=== PATIENT | female | born 1980 | race Two or more races ===

== ENCOUNTER 2022-04-08 20:35 | Emergency (ER) | payer SELFPAY ==
[~2022-04-08] VITALS: Ht 165.1 cm; Wt 90.7 kg
--- NOTE | 2022-04-08 20:35 | NUR ---
RECEIVED THIS 41YO FEMALE PATIENT IN THE HOSPITAL PARKING LOT STANDING BESIDE THE BARBER INSTRUCTOR SIDE DOOR. PATIENT IS SHOUTING AND CRYING THAT SHE IS GONNA DELIVER A BABY. ASSESSMENT DONE, PATIENT IS STANDING IN A POOL OF WATER RUNNING FROM HER LEGS. SAW A FETUS STILL INSIDE A SAC IN THE BARBER INSTRUCTOR SEAT. PATIENT SAID SOMETHING CAME OUT AND SHE IS 17 WEEKS . TRANSPORTED PATIENT INSIDE THE ER AT BED 17. ATTACHED TO MONITOR. VITALS CHECKED.
--- NOTE | 2022-04-08 20:51 | NUR ---
GUSHING OF AMNIOTIC FLUIDS ACCOMPANIED WITH CONTRACTIONS.
--- NOTE | 2022-04-08 20:53 | NUR ---
PATIENT REFUSED FOR IV LINE REFUSED TO HAVE BLOOD DRAWN
--- NOTE | 2022-04-08 21:11 | NUR ---
2ND FETUS DELIVERED WITH UMBILICAL CORD ATTACHED TO PLACENTA INSIDE MOTHER'S WOMB.
--- NOTE | 2022-04-08 21:15 | NUR ---
AWAITING ACCEPTANCE INFO FROM [facility] REGARDING PT TRANSFER. CALLED [facility] SPOKE WITH DISPATCHER LEEANNE. ALS TRANSPORT WILLCALL SET UP FOR MIDNIGHT.
--- NOTE | 2022-04-08 21:28 | NUR ---
[facility] GAVE ACCEPTANCE UNDER DR HERRERA. ER TO ER ALS TRANSFER SCHEDULED FOR MIDNIGHT [facility]IA [facility]. Addendum: 04/08/22 at 2340 by ROMOLT MEENA GAVE ACCEPTANCE UNDER DR HERRERA. ER TO OB TRIAGE ALS TRANSFER SCHEDULED FOR MIDNIGHT [facility]IA [facility].
[2022-04-08] MEDS ORDERED: OXYTOCIN 20 UNIT in IV NS 0.9% 1,000 ML IV ONE (21:30)
--- NOTE | 2022-04-08 21:30 | NUR ---
[facility] TO L&D NURSE SANDS WITH DR HERRERA AT THE BACKGROUND. RECEIVED INSTRUCTIONS TO PUT THE FETUSES IN A CONTAINER WITH SOLUTION PREPARED BY LAB. AND SEND THE FETUSES TO THE LAB AND NOT TO SENT IT WITH THE PATIENT TO [facility]. GIVEN INSTRUCTIONS BY NURSE SANDS TO CUT THE UMBILICAL CORD AND MAINTAIN THE CLAMP IN THE UMBILICAL CORD ATTACHED TO AVOID RETRACTION OF PLACENTA INSIDE THE MOTHER.
--- NOTE | 2022-04-08 21:30 | NUR ---
DR GARCIA MADE AWARE ABOUT THE PLAN OF L&D NURSE AND DR. HERRERA AND HE AGREED.
--- NOTE | 2022-04-08 21:45 | NUR ---
PLACENTA OUT, PRESSLEY PRESENTATION. MD MADE AWARE. MD CAME AND INSPECT THE PLACENTA.
[2022-04-08] MEDS ORDERED: VASOPRESSIN INJ 20 UNIT/ML VIAL ONE (22:00)
[2022-04-08 22:49] LABS: BASOPHILS % (AUTO) 0.1 % (0.0-2.0); EOSINOPHILS % (AUTO) 0.1 % (0.0-6.0); HEMATOCRIT 33 % (33-45); HEMOGLOBIN 11.1 g/dL (11.5-14.8); LYMPHOCYTES # (AUTO) 0.5 K/uL (0.8-4.8); LYMPHOCYTES % (AUTO) 5.5 % (20.0-44.0); MEAN CORPUSCULAR HGB CONC 34 g/dl (31.0-36.0); MEAN CORPUSCULAR VOLUME 87 fL (82-100); MONOCYTES # (AUTO) 0.1 K/uL (0.1-1.30); MONOCYTES % (AUTO) 1.4 % (2.0-12.0); NEUTROPHILS # (AUTO) 8.3 K/uL (1.8-8.9); NEUTROPHILS % (AUTO) 92.9 % (43.0-81.0); PLATELET COUNT (AUTO) 148 K/uL (150-450); RED BLOOD CELL COUNT(AUTO) 3.77 MIL/uL (4.0-5.2)
[2022-04-08] MEDS ORDERED: TDAP [DIPH/PERTUSSIS/TET] 0.5 ML VIAL IM ONE (23:04)
[2022-04-08 23:08] LABS: ALBUMIN 2.8 g/dL (3.4-5.0); BILIRUBIN,DIRECT 0.1 mg/dL (0.0-0.2); BILIRUBIN,TOTAL 0.4 mg/dL (0.2-1.0); TOTAL PROTEIN, SERUM 6.8 g/dL (6.4-8.2)
--- NOTE | 2022-04-08 23:17 | NUR ---
COVID SWAB DONE AND SENT TO LAB
--- NOTE | 2022-04-08 23:47 | NUR ---
[facility] CALLED TO INFORM OF A 30-45 MINUTE DELAY.
[2022-04-09] MEDS ORDERED: ACETAMINOPHEN 325 MG TABLET ONE (00:12)
[2022-04-09] MEDS ORDERED: ACETAMINOPHEN 325 MG TABLET PO ONE (00:30)
--- NOTE | 2022-04-09 00:30 | NUR ---
PATIENT WANTS TO GO HOME. I EXPLAINED TO PATIENT THAT SHE NEEDS TO GO TO [facility] TO BE CHECK BY LONG CHAIN BEAMER IF THERE ARE ANY HEMORRHAGE OR ANY TISSUE LEFT OF CONCEPTION STILL INSIDE. PATIENT REFUSED. SHE WANTS TO GO HOME. EXPLAINED TO THE PATIENT THE RISK OF BLEEDING OR SEPSIS COULD HAPPEN TO HER. PATIENT STILL REFUSE TO TRANSFER.
--- NOTE | 2022-04-09 00:40 | NUR ---
JENNIE SIGNED BY PATIENT. DR BOND MADE AWARE.
--- NOTE | 2022-04-09 00:42 | NUR ---
IV CANNULA REMOVED. PATIENT ASSISTED TO CAR.
--- NOTE | 2022-04-09 00:57 | NUR ---
[facility] OB TRI[facility] NOTIFIED THAT PATIENT SIGNED AMA AND WILL NO LONGER BE TRANSFERRED.
--- NOTE | 2022-04-09 04:15 | NUR ---
2 PRODUCT OF CONCEPTION ENDORSED TO LAB.
[2022-04-09 04:19] VITALS: BP 113/58
== END 2022-04-09 00:40 | disposition left against medical advice (07) ==
LOC: ER 22:26
DX: O60.12X0 Preterm labor second trimester with preterm delivery second trimester, not applicable or unspecified (principal); O30.002 Twin pregnancy, unspecified number of placenta and unspecified number of amniotic sacs, second trimester; Z3A.14 14 weeks gestation of pregnancy; Z37.9 Outcome of delivery, unspecified; O99.512 Diseases of the respiratory system complicating pregnancy, second trimester; Z53.29 Procedure and treatment not carried out because of patient's decision for other reasons; Z20.822 Contact with and (suspected) exposure to COVID-19; J45.909 Unspecified asthma, uncomplicated
CPT/HCPCS: 99291; 87426; 85025; 80076; 36415; 85730; 86850; J7030; C9803; 90715; J3490